=== PATIENT | male | born 1940 | race Caucasian/White ===

== ENCOUNTER 2019-02-08 05:46 | Inpatient (IN) | payer MEDICARE, BC ==
[2019-02-08] MEDS: FAMOTIDINE 20 MG INJ IV (06:04)
[2019-02-08 06:13] LABS: ADD MAN DIFF? NO
[2019-02-08 06:22] LABS: ABNORMAL IP MESSAGE 1; BASOPHILS % 0.2 % (0.0-2.0); EOSINOPHILS % 0.2 % (0.0-7.0); HEMOGLOBIN 11.9 g/dl (14.0-18.0); LYMPHOCYTES # 1.3 10^3/ul (0.8-2.9); LYMPHOCYTES % 10.6 % (15.0-51.0); MEAN CORPUSCULAR HEMOGLOBIN 32.3 pg (29.0-33.0); MEAN CORPUSCULAR HGB CONC 33.1 g/dl (32.0-37.0); MEAN CORPUSCULAR VOLUME 97.8 fl (82.0-101.0); MEAN PLATELET VOLUME 10.4 fl (7.4-10.4); MONOCYTE # 1.7 10^3/ul (0.3-0.9); MONOCYTES % 14.3 % (0.0-11.0); PLATELET COUNT 425 10^3/UL (140-415); POSITIVE DIFF @See below; RED BLOOD COUNT 3.68 10^6/ul (4.70-6.10); RED CELL DISTRIBUTION WIDTH 14.3 % (11.5-14.5)
[2019-02-08 06:22] LABS: WHITE BLOOD COUNT 12.1 10^3/ul (4.8-10.8)
[2019-02-08 06:38] LABS: ALANINE AMINOTRANSFERASE 21 IU/L (13-69); ALBUMIN 3.6 g/dl (3.3-4.9); ALBUMIN/GLOBULIN RATIO 0.78; ALKALINE PHOSPHATASE 106 IU/L (42-121); ANION GAP 8 (5-13); ASPARTATE AMINO TRANSFERASE 26 IU/L (15-46); BILIRUBIN,INDIRECT 0.6 mg/dl (0-1.1); BILIRUBIN,TOTAL 0.6 mg/dl (0.2-1.3); BLOOD UREA NITROGEN 41 mg/dl (7-20); CALCIUM 9.4 mg/dl (8.4-10.2); CARBON DIOXIDE 36 mmol/L (21-31); CHLORIDE 88 mmol/L (97-110); CREATININE 1.28 mg/dl (0.61-1.24); GLUCOSE 162 mg/dl (70-220); POTASSIUM 4.4 mmol/L (3.5-5.1); SODIUM 132 mmol/L (135-144); TOTAL PROTEIN 8.2 g/dl (6.1-8.1)
[2019-02-08 06:42] LABS: PROTIME 13.3 Sec (11.9-14.9)
[2019-02-08 06:43] LABS: ADD UMIC YES; PARTIAL THROMBOPLASTIN TIME 39.6 Sec (23.0-35.0); UR ASCORBIC ACID 40 mg/dL (NEGATIVE); UR BACTERIA FEW /HPF (NONE SEEN); UR BILIRUBIN (Dip) 1+ mg/dL (NEGATIVE); UR BLOOD (Dip) 1+ mg/dL (NEGATIVE); UR CLARITY CLOUDY (CLEAR); UR COLOR AMBER (YELLOW); UR GLUCOSE (Dip) NEGATIVE (NEGATIVE); UR HYALINE CAST FEW /HPF (NONE SEEN); UR KETONES (Dip) NEGATIVE (NEGATIVE); UR LEUKOCYTE ESTERASE (Dip) 2+ Leu/ul (NEGATIVE); UR MUCUS MANY /HPF (NONE SEEN); UR NITRITE (Dip) NEGATIVE (NEGATIVE); UR RBC 119 /HPF (0-5); UR RENAL EPITHELIAL CELL FEW /HPF (NONE SEEN); UR SPECIFIC GRAVITY (Dip) 1.032 (1.003-1.030); UR TOTAL PROTEIN (Dip) 2+ mg/dl (NEGATIVE); UR UROBILINOGEN (Dip) 1+ mg/dL (NEGATIVE); UR WBC > 182 /HPF (0-5)
[2019-02-08 06:49] LABS: TROPONIN-I < 0.012 ng/ml (0.000-0.120)
[2019-02-08] MEDS: SOD CHLORIDE 0.9% 500 ML IV ×2 (06:57→07:42)
[2019-02-08] MEDS: PIPER-TAZO 3.375 GM IV (PMX) 100 ML IVPB ×3 (06:57→15:55)
[2019-02-08] MEDS ORDERED: ACETAMINOPHEN 325 MG TAB PO (07:00)
[2019-02-08] MEDS ORDERED: ONDANSETRON 4 MG INJ IV (07:00)
[2019-02-08] MEDS ORDERED: NACL 0.9% 3 ML SYG IV (07:30)
[2019-02-08] MEDS ORDERED: VANCOMYCIN IV PER PHARMACY XX (07:30)
[2019-02-08] MEDS: VANCOMYCIN 1 GM (PMX) 250 ML IVPB (07:42)
[2019-02-08] MEDS: SOD CHLORIDE 0.9% 1,000 ML IV ×2 (07:43→20:06)
[2019-02-08 08:12] LABS: B-TYPE NATRIURETIC PEPTIDE 401 PG/ML (0-450)
[2019-02-08] MEDS: PANTOPRAZOLE 40 MG INJ IV ×3 (08:24→20:06)
[2019-02-08 08:57] LABS: LACTIC ACID 2.2 mmol/L (0.5-2.0)
[2019-02-08] MEDS: ALBUMIN HUMAN 25% 100 ML IV ×2 (10:28→15:10)
[2019-02-08 11:06] LABS: LACTIC ACID 1.5 mmol/L (0.5-2.0)
[2019-02-08] MEDS: morphine 2 MG INJ IV (11:28)
[2019-02-08] MEDS: VANCOMYCIN 500 MG (PMX) 100 ML IVPB (11:54)
[2019-02-08] MEDS ORDERED: DESFLURANE 15 MIN (12:30)
[2019-02-08] MEDS ORDERED: FENTAnyl 50 MCG/ML VIAL (12:30)
[2019-02-08] MEDS ORDERED: LIDOCAINE 2% (SDV) 5 ML INJ (12:30)
[2019-02-08] MEDS ORDERED: ETOMIDATE 20 MG INJ (12:30)
[2019-02-08] MEDS ORDERED: ROCURONIUM 50 MG INJ ×2 (12:30)
[2019-02-08] MEDS ORDERED: MIDAZOLAM 1 MG/ML 2 ML INJ (12:48)
[2019-02-08] MEDS ORDERED: FAMOTIDINE 20 MG INJ (12:49)
[2019-02-08] MEDS ORDERED: ONDANSETRON 4 MG INJ (12:49)
[2019-02-08] MEDS ORDERED: SUGAMMADEX SODIUM 200 MG/2 ML VIAL IV (12:52)
[2019-02-08] MEDS ORDERED: MAGNESIUM HYDROXIDE 30ML CUP GTB (15:30)
[2019-02-08] MEDS ORDERED: LORAZEPAM 0.5 MG TAB GTB (15:30)
[2019-02-08 16:34] LABS: ADD UMIC YES; UR ASCORBIC ACID 20 mg/dL (NEGATIVE); UR BILIRUBIN (Dip) NEGATIVE (NEGATIVE); UR BLOOD (Dip) NEGATIVE (NEGATIVE); UR CLARITY SLIGHTLY CLOUDY (CLEAR); UR COLOR YELLOW (YELLOW); UR GLUCOSE (Dip) NEGATIVE (NEGATIVE); UR KETONES (Dip) NEGATIVE (NEGATIVE); UR LEUKOCYTE ESTERASE (Dip) 3+ Leu/ul (NEGATIVE); UR MUCUS FEW /HPF (NONE SEEN); UR NITRITE (Dip) POSITIVE (NEGATIVE); UR RBC 3 /HPF (0-5); UR SPECIFIC GRAVITY (Dip) 1.024 (1.003-1.030); UR TOTAL PROTEIN (Dip) NEGATIVE (NEGATIVE); UR UROBILINOGEN (Dip) NEGATIVE (NEGATIVE); UR WBC 85 /HPF (0-5)
[2019-02-08 16:37] LABS: SODIUM,URINE RANDOM 60 mmol/L (30-90)
[2019-02-08 16:37] LABS: CREATININE,URINE RANDOM 85.16 mg/dl (20-370)
[2019-02-08] MEDS: METOCLOPRAMIDE 10 MG INJ IV (18:06)
[2019-02-08 18:27] LABS: ADD MAN DIFF? NO
[2019-02-08 18:28] LABS: ABNORMAL IP MESSAGE 1; BASOPHILS % 0.3 % (0.0-2.0); EOSINOPHILS # 0.2 10^3/ul (0.0-0.5); HEMATOCRIT 25.8 % (42.0-52.0); HEMOGLOBIN 8.5 g/dl (14.0-18.0); LYMPHOCYTES # 0.5 10^3/ul (0.8-2.9); LYMPHOCYTES % 6.2 % (15.0-51.0); MEAN CORPUSCULAR HEMOGLOBIN 33.3 pg (29.0-33.0); MEAN CORPUSCULAR HGB CONC 32.9 g/dl (32.0-37.0); MEAN CORPUSCULAR VOLUME 101.2 fl (82.0-101.0); MEAN PLATELET VOLUME 10.2 fl (7.4-10.4); MONOCYTE # 0.7 10^3/ul (0.3-0.9); MONOCYTES % 9.9 % (0.0-11.0); NEUTROPHILS % 81.1 % (39.0-77.0); PLATELET COUNT 266 10^3/UL (140-415); POSITIVE DIFF @See below; RED BLOOD COUNT 2.55 10^6/ul (4.70-6.10); RED CELL DISTRIBUTION WIDTH 14.3 % (11.5-14.5)
[2019-02-08 18:28] LABS: WHITE BLOOD COUNT 7.5 10^3/ul (4.8-10.8)
[2019-02-08 18:44] LABS: CREATINE KINASE 20 IU/L (23-200)
[2019-02-08 18:57] LABS: CK INDEX 1.5; CK-MB 0.29 ng/ml (0.0-2.4); TROPONIN-I < 0.012 ng/ml (0.000-0.120)
[2019-02-08] MEDS: SENNA TAB GTB (20:06)
[2019-02-09] MEDS: METOCLOPRAMIDE 10 MG INJ IV ×4 (00:04→21:37)
[2019-02-09] MEDS: PIPER-TAZO 3.375 GM IV (PMX) 100 ML IVPB ×4 (00:04→21:36)
[2019-02-09 01:24] LABS: ADD MAN DIFF? NO
[2019-02-09 01:26] LABS: ABNORMAL IP MESSAGE 1; BASOPHILS % 0.3 % (0.0-2.0); EOSINOPHILS # 0.2 10^3/ul (0.0-0.5); EOSINOPHILS % 3.4 % (0.0-7.0); HEMATOCRIT 22.9 % (42.0-52.0); HEMOGLOBIN 7.4 g/dl (14.0-18.0); LYMPHOCYTES # 0.4 10^3/ul (0.8-2.9); LYMPHOCYTES % 6.6 % (15.0-51.0); MEAN CORPUSCULAR HEMOGLOBIN 32.2 pg (29.0-33.0); MEAN CORPUSCULAR HGB CONC 32.3 g/dl (32.0-37.0); MEAN CORPUSCULAR VOLUME 99.6 fl (82.0-101.0); MEAN PLATELET VOLUME 10.1 fl (7.4-10.4); MONOCYTE # 0.8 10^3/ul (0.3-0.9); MONOCYTES % 12.1 % (0.0-11.0); NEUTROPHIL # 5.1 10^3/ul (1.6-7.5); NEUTROPHILS % 76.9 % (39.0-77.0); PLATELET COUNT 234 10^3/UL (140-415); POSITIVE DIFF @See below; RED CELL DISTRIBUTION WIDTH 14.6 % (11.5-14.5)
[2019-02-09 01:26] LABS: WHITE BLOOD COUNT 6.7 10^3/ul (4.8-10.8)
[2019-02-09 01:45] LABS: CREATINE KINASE 21 IU/L (23-200)
[2019-02-09 01:59] LABS: CK-MB < 0.22 ng/ml (0.0-2.4); TROPONIN-I < 0.012 ng/ml (0.000-0.120)
[2019-02-09 06:18] LABS: ADD MAN DIFF? NO
[2019-02-09] MEDS: LEVOTHYROXINE 100 MCG TAB GTB (06:26)
[2019-02-09 06:45] LABS: ABNORMAL IP MESSAGE 1; BASOPHILS % 0.5 % (0.0-2.0); EOSINOPHILS # 0.3 10^3/ul (0.0-0.5); EOSINOPHILS % 5.3 % (0.0-7.0); HEMATOCRIT 24.9 % (42.0-52.0); LYMPHOCYTES # 0.5 10^3/ul (0.8-2.9); MEAN CORPUSCULAR HEMOGLOBIN 33.5 pg (29.0-33.0); MEAN CORPUSCULAR HGB CONC 32.1 g/dl (32.0-37.0); MEAN CORPUSCULAR VOLUME 104.2 fl (82.0-101.0); MEAN PLATELET VOLUME 10.5 fl (7.4-10.4); MONOCYTE # 0.7 10^3/ul (0.3-0.9); MONOCYTES % 11.9 % (0.0-11.0); NEUTROPHIL # 4.2 10^3/ul (1.6-7.5); NEUTROPHILS % 72.3 % (39.0-77.0); PLATELET COUNT 233 10^3/UL (140-415); POSITIVE DIFF @See below; RED BLOOD COUNT 2.39 10^6/ul (4.70-6.10); RED CELL DISTRIBUTION WIDTH 14.6 % (11.5-14.5)
[2019-02-09 06:45] LABS: WHITE BLOOD COUNT 5.8 10^3/ul (4.8-10.8)
[2019-02-09 07:10] LABS: CHOLESTEROL 90 mg/dl (100-200); PHOSPHORUS 2.8 mg/dl (2.5-4.9)
[2019-02-09 07:10] LABS: HDL CHOLESTEROL 15 mg/dl (31-75); LDL CHOLESTEROL,CALCULATED 54 mg/dl; TRIGLYCERIDES 106 mg/dl (0-149)
[2019-02-09 07:12] LABS: ALANINE AMINOTRANSFERASE 36 IU/L (13-69); ALBUMIN 2.7 g/dl (3.3-4.9); ALBUMIN/GLOBULIN RATIO 0.79; ALKALINE PHOSPHATASE 65 IU/L (42-121); ANION GAP 7 (5-13); ASPARTATE AMINO TRANSFERASE 62 IU/L (15-46); BILIRUBIN,INDIRECT 0.7 mg/dl (0-1.1); BILIRUBIN,TOTAL 0.7 mg/dl (0.2-1.3); BLOOD UREA NITROGEN 36 mg/dl (7-20); CALCIUM 8.2 mg/dl (8.4-10.2); CARBON DIOXIDE 26 mmol/L (21-31); CHLORIDE 102 mmol/L (97-110); CREATININE 1.23 mg/dl (0.61-1.24); GLUCOSE 84 mg/dl (70-220); MAGNESIUM 1.9 mg/dl (1.7-2.5); POTASSIUM 3.9 mmol/L (3.5-5.1); SODIUM 135 mmol/L (135-144); TOTAL PROTEIN 6.1 g/dl (6.1-8.1)
[2019-02-09] MEDS: VANCOMYCIN 1.25 GM/NS 250 ML 250 ML IVPB ×2 (08:00→10:23)
[2019-02-09] MEDS: PANTOPRAZOLE 40 MG INJ IV ×3 (09:00→21:36)
[2019-02-09] MEDS: ASCORBIC ACID 500 MG TAB GTB (09:00)
[2019-02-09] MEDS: MEMANTINE 5 MG TAB GTB (09:00)
[2019-02-09] MEDS: SERTRALINE 50 MG TAB GTB (09:00)
[2019-02-09] MEDS: MULTIVITAMINS THERAPEUTIC TAB GTB (09:00)
[2019-02-09] MEDS: SENNA TAB GTB ×2 (09:00→21:36)
[2019-02-09] MEDS: ALBUTEROL/IPRATROPIUM (NEB) 3 ML AMP HHN (09:45)
[2019-02-09 12:28] LABS: CREATINE KINASE 20 IU/L (23-200)
[2019-02-09 12:40] LABS: CK INDEX 1.1; CK-MB < 0.22 ng/ml (0.0-2.4); TROPONIN-I < 0.012 ng/ml (0.000-0.120)
[2019-02-09 13:12] LABS: ADD MAN DIFF? NO
[2019-02-09 13:15] LABS: BASOPHILS % 0.4 % (0.0-2.0); EOSINOPHILS # 0.4 10^3/ul (0.0-0.5); EOSINOPHILS % 7.4 % (0.0-7.0); HEMATOCRIT 22.1 % (42.0-52.0); LYMPHOCYTES # 0.7 10^3/ul (0.8-2.9); LYMPHOCYTES % 12.3 % (15.0-51.0); MEAN CORPUSCULAR HEMOGLOBIN 32.3 pg (29.0-33.0); MEAN CORPUSCULAR HGB CONC 31.7 g/dl (32.0-37.0); MEAN CORPUSCULAR VOLUME 101.8 fl (82.0-101.0); MEAN PLATELET VOLUME 9.8 fl (7.4-10.4); MONOCYTE # 0.8 10^3/ul (0.3-0.9); MONOCYTES % 14.4 % (0.0-11.0); NEUTROPHIL # 3.4 10^3/ul (1.6-7.5); NEUTROPHILS % 64.9 % (39.0-77.0); PLATELET COUNT 223 10^3/UL (140-415); RED BLOOD COUNT 2.17 10^6/ul (4.70-6.10); RED CELL DISTRIBUTION WIDTH 14.7 % (11.5-14.5)
[2019-02-09 13:15] LABS: WHITE BLOOD COUNT 5.3 10^3/ul (4.8-10.8)
[2019-02-09] MEDS: SOD CHLORIDE 0.9% 1,000 ML IV (16:00)
[2019-02-09] MEDS: SOD CHLORIDE 0.9% 250 ML IV* (16:36)
[2019-02-09 17:46] LABS: CREATININE, RANDOM URINE 85 mg/dL (20-320); MICROALBUMIN 2.1 mg/dL; MICROALBUMIN/CREATININE RATIO 25 (<30)
[2019-02-09] MEDS: morphine 2 MG INJ IV (23:06)
[2019-02-10] MEDS: METOCLOPRAMIDE 10 MG INJ IV ×4 (00:33→18:47)
[2019-02-10] MEDS: PIPER-TAZO 3.375 GM IV (PMX) 100 ML IVPB ×2 (00:33→05:08)
[2019-02-10] MEDS: morphine 2 MG INJ IV ×2 (05:07→11:13)
[2019-02-10 06:04] LABS: ADD MAN DIFF? NO
[2019-02-10 06:08] LABS: WHITE BLOOD COUNT 4.6 10^3/ul (4.8-10.8)
[2019-02-10 06:08] LABS: BASOPHILS % 0.7 % (0.0-2.0); EOSINOPHILS # 0.4 10^3/ul (0.0-0.5); EOSINOPHILS % 8.7 % (0.0-7.0); HEMATOCRIT 22.5 % (42.0-52.0); HEMOGLOBIN 7.3 g/dl (14.0-18.0); LYMPHOCYTES # 0.7 10^3/ul (0.8-2.9); LYMPHOCYTES % 14.8 % (15.0-51.0); MEAN CORPUSCULAR HEMOGLOBIN 32.2 pg (29.0-33.0); MEAN CORPUSCULAR HGB CONC 32.4 g/dl (32.0-37.0); MEAN CORPUSCULAR VOLUME 99.1 fl (82.0-101.0); MEAN PLATELET VOLUME 10.3 fl (7.4-10.4); MONOCYTE # 0.9 10^3/ul (0.3-0.9); MONOCYTES % 19.8 % (0.0-11.0); NEUTROPHIL # 2.5 10^3/ul (1.6-7.5); NEUTROPHILS % 54.7 % (39.0-77.0); PLATELET COUNT 216 10^3/UL (140-415); RED BLOOD COUNT 2.27 10^6/ul (4.70-6.10); RED CELL DISTRIBUTION WIDTH 16.9 % (11.5-14.5)
[2019-02-10 06:32] LABS: PHOSPHORUS 2.8 mg/dl (2.5-4.9)
[2019-02-10 06:38] LABS: ANION GAP 6 (5-13); BLOOD UREA NITROGEN 32 mg/dl (7-20); CALCIUM 8.1 mg/dl (8.4-10.2); CARBON DIOXIDE 25 mmol/L (21-31); CHLORIDE 106 mmol/L (97-110); CREATININE 1.27 mg/dl (0.61-1.24); GLUCOSE 86 mg/dl (70-220); POTASSIUM 3.8 mmol/L (3.5-5.1); SODIUM 137 mmol/L (135-144)
[2019-02-10] MEDS: LEVOTHYROXINE 100 MCG TAB GTB (07:00)
[2019-02-10] MEDS: MULTIVITAMINS THERAPEUTIC TAB GTB (08:27)
[2019-02-10] MEDS: SENNA TAB GTB ×2 (08:27→21:00)
[2019-02-10] MEDS: MEMANTINE 5 MG TAB GTB (08:27)
[2019-02-10] MEDS: VANCOMYCIN 1.25 GM/NS 250 ML 250 ML IVPB (08:27)
[2019-02-10] MEDS: SERTRALINE 50 MG TAB GTB (08:28)
[2019-02-10] MEDS: ASCORBIC ACID 500 MG TAB GTB (08:28)
[2019-02-10] MEDS: PANTOPRAZOLE 40 MG INJ IV (08:30)
[2019-02-10] MEDS: SOD CHLORIDE 0.9% 1,000 ML IV (09:21)
[2019-02-10] MEDS: PANTOPRAZOLE IV 80 MG in SOD CHLORIDE 0.9% 100 ML IV ×2 (12:04→21:00)
[2019-02-10] MEDS: SOD CHLORIDE 0.9% 500 ML IV (16:31)
[2019-02-10 16:33] LABS: HEMATOCRIT 26.6 % (42.0-52.0); HEMOGLOBIN 8.6 g/dl (14.0-18.0)
[2019-02-10 18:15] LABS: IMMEDIATE SPIN CROSSMATCH 1 3
[2019-02-10] MEDS: POLYETHYLENE GLYCOL 17 GM PACKET GTB (21:00)
[2019-02-10] MEDS: CIPROFLOXACIN 400MG/D5W 200 ML IVPB (21:54)
[2019-02-11 00:53] LABS: HEMOGLOBIN 8.7 g/dl (14.0-18.0)
[2019-02-11] MEDS: METOCLOPRAMIDE 10 MG INJ IV ×4 (01:06→17:51)
[2019-02-11] MEDS: SOD CHLORIDE 0.9% 1,000 ML IV ×2 (05:00→20:07)
[2019-02-11] MEDS: LEVOTHYROXINE 100 MCG TAB GTB (05:24)
[2019-02-11] MEDS: PANTOPRAZOLE IV 80 MG in SOD CHLORIDE 0.9% 100 ML IV ×2 (05:24→17:51)
[2019-02-11 07:20] LABS: OCCULT BLOOD STOOL POSITIVE (NEGATIVE)
[2019-02-11] MEDS: ASCORBIC ACID 500 MG TAB GTB (09:00)
[2019-02-11] MEDS: SERTRALINE 50 MG TAB GTB (09:00)
[2019-02-11] MEDS: MEMANTINE 5 MG TAB GTB (09:00)
[2019-02-11] MEDS: MULTIVITAMINS THERAPEUTIC TAB GTB (09:00)
[2019-02-11] MEDS: POLYETHYLENE GLYCOL 17 GM PACKET GTB ×2 (09:00→20:13)
[2019-02-11] MEDS: SENNA TAB GTB ×2 (09:00→20:13)
[2019-02-11] MEDS: CIPROFLOXACIN 400MG/D5W 200 ML IVPB (10:00)
[2019-02-11] MEDS: morphine 2 MG INJ IV (10:01)
[2019-02-11 12:56] LABS: ADD MAN DIFF? NO
[2019-02-11 13:01] LABS: BASOPHILS % 0.6 % (0.0-2.0); EOSINOPHILS # 0.3 10^3/ul (0.0-0.5); EOSINOPHILS % 5.6 % (0.0-7.0); HEMATOCRIT 25.7 % (42.0-52.0); HEMOGLOBIN 8.4 g/dl (14.0-18.0); LYMPHOCYTES # 1.3 10^3/ul (0.8-2.9); LYMPHOCYTES % 24.4 % (15.0-51.0); MEAN CORPUSCULAR HEMOGLOBIN 31.3 pg (29.0-33.0); MEAN CORPUSCULAR HGB CONC 32.7 g/dl (32.0-37.0); MEAN CORPUSCULAR VOLUME 95.9 fl (82.0-101.0); MEAN PLATELET VOLUME 9.4 fl (7.4-10.4); MONOCYTE # 0.8 10^3/ul (0.3-0.9); MONOCYTES % 15.8 % (0.0-11.0); NEUTROPHIL # 2.7 10^3/ul (1.6-7.5); NEUTROPHILS % 51.3 % (39.0-77.0); PLATELET COUNT 197 10^3/UL (140-415); RED BLOOD COUNT 2.68 10^6/ul (4.70-6.10); RED CELL DISTRIBUTION WIDTH 16.4 % (11.5-14.5)
[2019-02-11 13:01] LABS: WHITE BLOOD COUNT 5.2 10^3/ul (4.8-10.8)
[2019-02-11 13:18] LABS: PHOSPHORUS 2.1 mg/dl (2.5-4.9)
[2019-02-11 13:20] LABS: ANION GAP 3 (5-13); BLOOD UREA NITROGEN 42 mg/dl (7-20); CALCIUM 8.2 mg/dl (8.4-10.2); CARBON DIOXIDE 24 mmol/L (21-31); CHLORIDE 112 mmol/L (97-110); CREATININE 1.02 mg/dl (0.61-1.24); GLUCOSE 97 mg/dl (70-220); MAGNESIUM 1.8 mg/dl (1.7-2.5); POTASSIUM 4.2 mmol/L (3.5-5.1); SODIUM 139 mmol/L (135-144)
[2019-02-11 13:23] LABS: VANCOMYCIN,TROUGH 14.3 ug/ml (10.0-20.0)
[2019-02-11] MEDS: FLUCONAZOLE 200 MG (PMX) 100 ML IVPB (13:25)
[2019-02-11] MEDS: VANCOMYCIN 1.25 GM/NS 250 ML 250 ML IVPB (13:35)
[2019-02-11] MEDS: LEVOFLOXACIN 500MG/D5W (PMX) 100 ML IVPB (20:40)
[2019-02-12] MEDS: METOCLOPRAMIDE 10 MG INJ IV ×5 (00:27→23:47)
[2019-02-12 02:17] LABS: ADD MAN DIFF? NO
[2019-02-12 02:19] LABS: WHITE BLOOD COUNT 10.8 10^3/ul (4.8-10.8)
[2019-02-12 02:19] LABS: ABNORMAL IP MESSAGE 1; BASOPHIL # 0.1 10^3/ul (0.0-0.1); BASOPHILS % 0.6 % (0.0-2.0); EOSINOPHILS # 0.5 10^3/ul (0.0-0.5); EOSINOPHILS % 4.3 % (0.0-7.0); LYMPHOCYTES % 37.5 % (15.0-51.0); MEAN CORPUSCULAR HEMOGLOBIN 31.5 pg (29.0-33.0); MEAN CORPUSCULAR HGB CONC 32.9 g/dl (32.0-37.0); MEAN CORPUSCULAR VOLUME 95.9 fl (82.0-101.0); MEAN PLATELET VOLUME 10.1 fl (7.4-10.4); MONOCYTE # 1.4 10^3/ul (0.3-0.9); MONOCYTES % 13.1 % (0.0-11.0); NEUTROPHIL # 4.6 10^3/ul (1.6-7.5); NEUTROPHILS % 42.3 % (39.0-77.0); PLATELET COUNT 361 10^3/UL (140-415); POSITIVE DIFF @See below; RED BLOOD COUNT 2.19 10^6/ul (4.70-6.10); RED CELL DISTRIBUTION WIDTH 16.4 % (11.5-14.5)
[2019-02-12 02:28] LABS: HEMOGLOBIN 6.9 g/dl (14.0-18.0)
[2019-02-12 02:40] LABS: ALANINE AMINOTRANSFERASE 37 IU/L (13-69); ALBUMIN 2.1 g/dl (3.3-4.9); ALBUMIN/GLOBULIN RATIO 0.84; ALKALINE PHOSPHATASE 58 IU/L (42-121); ANION GAP 6 (5-13); ASPARTATE AMINO TRANSFERASE 30 IU/L (15-46); BILIRUBIN,INDIRECT 0.5 mg/dl (0-1.1); BILIRUBIN,TOTAL 0.5 mg/dl (0.2-1.3); BLOOD UREA NITROGEN 30 mg/dl (7-20); CALCIUM 7.8 mg/dl (8.4-10.2); CARBON DIOXIDE 17 mmol/L (21-31); CHLORIDE 116 mmol/L (97-110); CREATININE 1.08 mg/dl (0.61-1.24); GLUCOSE 185 mg/dl (70-220); POTASSIUM 3.7 mmol/L (3.5-5.1); SODIUM 139 mmol/L (135-144); TOTAL PROTEIN 4.6 g/dl (6.1-8.1)
[2019-02-12 02:41] LABS: INR 1.26; PROTIME 15.9 Sec (11.9-14.9); PT RATIO 1.2
[2019-02-12 02:49] LABS: PARTIAL THROMBOPLASTIN TIME 39.2 Sec (23.0-35.0)
[2019-02-12 02:50] LABS: LACTIC ACID 3.4 mmol/L (0.5-2.0)
[2019-02-12] MEDS: NORepinephrine 8MG/250 ML (PMX 250 ML IV (03:10)
[2019-02-12] MEDS: PANTOPRAZOLE IV 80 MG in SOD CHLORIDE 0.9% 100 ML IV ×3 (03:17→21:33)
[2019-02-12] MEDS: SOD CHLORIDE 0.9% 1,000 ML IV (04:07)
[2019-02-12] MEDS: morphine 2 MG INJ IV (04:29)
[2019-02-12] MEDS: ONDANSETRON 4 MG INJ IV (05:26)
[2019-02-12 06:00] LABS: IMMEDIATE SPIN CROSSMATCH 1 4
[2019-02-12] MEDS: LEVOTHYROXINE 100 MCG TAB GTB (06:08)
[2019-02-12 08:17] LABS: IMMEDIATE SPIN CROSSMATCH 1
[2019-02-12] MEDS: SENNA TAB GTB ×2 (08:38→20:52)
[2019-02-12] MEDS: POLYETHYLENE GLYCOL 17 GM PACKET GTB ×2 (08:38→20:51)
[2019-02-12] MEDS: ASCORBIC ACID 500 MG TAB GTB (08:38)
[2019-02-12] MEDS: SERTRALINE 50 MG TAB GTB (08:38)
[2019-02-12] MEDS: MULTIVITAMINS THERAPEUTIC TAB GTB (08:38)
[2019-02-12] MEDS: MEMANTINE 5 MG TAB GTB (08:38)
[2019-02-12] MEDS: FLUCONAZOLE 200 MG (PMX) 100 ML IVPB (10:35)
[2019-02-12 11:55] LABS: ADD MAN DIFF? NO
[2019-02-12 11:56] LABS: BASOPHILS % 0.4 % (0.0-2.0); EOSINOPHILS % 0.4 % (0.0-7.0); HEMATOCRIT 23.5 % (42.0-52.0); HEMOGLOBIN 7.8 g/dl (14.0-18.0); LYMPHOCYTES % 15.2 % (15.0-51.0); MEAN CORPUSCULAR HEMOGLOBIN 32.1 pg (29.0-33.0); MEAN CORPUSCULAR HGB CONC 33.2 g/dl (32.0-37.0); MEAN CORPUSCULAR VOLUME 96.7 fl (82.0-101.0); MEAN PLATELET VOLUME 9.1 fl (7.4-10.4); MONOCYTE # 0.7 10^3/ul (0.3-0.9); MONOCYTES % 10.3 % (0.0-11.0); NEUTROPHIL # 4.6 10^3/ul (1.6-7.5); NEUTROPHILS % 69.2 % (39.0-77.0); PLATELET COUNT 167 10^3/UL (140-415); RED BLOOD COUNT 2.43 10^6/ul (4.70-6.10); RED CELL DISTRIBUTION WIDTH 15.3 % (11.5-14.5)
[2019-02-12 11:56] LABS: WHITE BLOOD COUNT 6.7 10^3/ul (4.8-10.8)
[2019-02-12] MEDS: LORAZEPAM 2 MG INJ IV ×2 (12:04→23:47)
[2019-02-12] MEDS: VANCOMYCIN 1 GM 250 ML IVPB (12:09)
[2019-02-12 12:12] LABS: PHOSPHORUS 2.9 mg/dl (2.5-4.9)
[2019-02-12 12:12] LABS: MAGNESIUM 1.6 mg/dl (1.7-2.5)
[2019-02-12 12:13] LABS: ANION GAP 3 (5-13); BLOOD UREA NITROGEN 38 mg/dl (7-20); CALCIUM 7.6 mg/dl (8.4-10.2); CARBON DIOXIDE 21 mmol/L (21-31); CHLORIDE 116 mmol/L (97-110); CREATININE 1.18 mg/dl (0.61-1.24); GLUCOSE 98 mg/dl (70-220); POTASSIUM 3.9 mmol/L (3.5-5.1); SODIUM 140 mmol/L (135-144)
[2019-02-12] MEDS: CEFEPIME 1GM/50 ML (PMX) 50 ML IVPB ×2 (15:05→21:33)
[2019-02-12 18:45] LABS: HEMATOCRIT 20.5 % (42.0-52.0)
[2019-02-12] MEDS: SOD CHLORIDE 0.9% 250 ML IV* (19:30)
[2019-02-12] MEDS: DEXTROSE 5%-0.45% NACL 1,000 ML IV (21:33)
[2019-02-13 00:14] LABS: HEMATOCRIT 24.8 % (42.0-52.0); HEMOGLOBIN 8.3 g/dl (14.0-18.0)
[2019-02-13] MEDS: LEVOTHYROXINE 100 MCG TAB GTB (05:07)
[2019-02-13] MEDS: METOCLOPRAMIDE 10 MG INJ IV ×3 (05:20→17:06)
[2019-02-13] MEDS: CEFEPIME 1GM/50 ML (PMX) 50 ML IVPB ×3 (05:20→23:14)
[2019-02-13 05:44] LABS: ADD MAN DIFF? NO
[2019-02-13 05:47] LABS: WHITE BLOOD COUNT 4.3 10^3/ul (4.8-10.8)
[2019-02-13 05:47] LABS: BASOPHILS % 0.5 % (0.0-2.0); EOSINOPHILS # 0.2 10^3/ul (0.0-0.5); EOSINOPHILS % 3.5 % (0.0-7.0); HEMATOCRIT 23.7 % (42.0-52.0); LYMPHOCYTES # 1.1 10^3/ul (0.8-2.9); LYMPHOCYTES % 25.6 % (15.0-51.0); MEAN CORPUSCULAR HEMOGLOBIN 31.7 pg (29.0-33.0); MEAN CORPUSCULAR HGB CONC 33.8 g/dl (32.0-37.0); MEAN PLATELET VOLUME 9.8 fl (7.4-10.4); MONOCYTE # 0.6 10^3/ul (0.3-0.9); MONOCYTES % 14.3 % (0.0-11.0); NEUTROPHIL # 2.2 10^3/ul (1.6-7.5); NEUTROPHILS % 51.7 % (39.0-77.0); PLATELET COUNT 146 10^3/UL (140-415); RED BLOOD COUNT 2.52 10^6/ul (4.70-6.10); RED CELL DISTRIBUTION WIDTH 15.6 % (11.5-14.5)
[2019-02-13 06:05] LABS: INR 1.24; PROTIME 15.7 Sec (11.9-14.9); PT RATIO 1.2
[2019-02-13 06:06] LABS: PARTIAL THROMBOPLASTIN TIME 39.4 Sec (23.0-35.0)
[2019-02-13 06:17] LABS: PHOSPHORUS 2.3 mg/dl (2.5-4.9)
[2019-02-13 06:17] LABS: MAGNESIUM 1.6 mg/dl (1.7-2.5)
[2019-02-13 06:25] LABS: ANION GAP 2 (5-13); BLOOD UREA NITROGEN 31 mg/dl (7-20); CALCIUM 7.9 mg/dl (8.4-10.2); CARBON DIOXIDE 21 mmol/L (21-31); CHLORIDE 116 mmol/L (97-110); CREATININE 1.15 mg/dl (0.61-1.24); GLUCOSE 88 mg/dl (70-220); POTASSIUM 3.5 mmol/L (3.5-5.1); SODIUM 139 mmol/L (135-144)
[2019-02-13] MEDS: PANTOPRAZOLE IV 80 MG in SOD CHLORIDE 0.9% 100 ML IV ×2 (06:57→17:06)
[2019-02-13] MEDS: MAGNESIUM SULFATE 2 GM/50 ML 50 ML IVPB (06:57)
[2019-02-13] MEDS: SENNA TAB GTB ×2 (08:10→20:20)
[2019-02-13] MEDS: MEMANTINE 5 MG TAB GTB (08:10)
[2019-02-13] MEDS: POLYETHYLENE GLYCOL 17 GM PACKET GTB ×2 (08:10→20:20)
[2019-02-13] MEDS: MULTIVITAMINS THERAPEUTIC TAB GTB (08:10)
[2019-02-13] MEDS: ASCORBIC ACID 500 MG TAB GTB (08:11)
[2019-02-13] MEDS: SERTRALINE 50 MG TAB GTB (08:11)
[2019-02-13] MEDS: POTASSIUM PHOSPHATE 20 MEQ in SOD CHLORIDE 0.9% 250 ML IVPB (08:17)
[2019-02-13] MEDS: DEXTROSE 5%-0.45% NACL 1,000 ML IV (10:22)
[2019-02-13] MEDS: FLUCONAZOLE 200 MG (PMX) 100 ML IVPB (10:22)
[2019-02-13 12:01] LABS: HEMATOCRIT 23.7 % (42.0-52.0)
[2019-02-13 17:56] LABS: HEMATOCRIT 24.1 % (42.0-52.0)
[2019-02-13] MEDS: morphine 2 MG INJ IV ×2 (20:31→23:40)
[2019-02-14] MEDS: METOCLOPRAMIDE 10 MG INJ IV ×4 (00:22→17:08)
[2019-02-14 00:34] LABS: HEMATOCRIT 28.3 % (42.0-52.0); HEMOGLOBIN 9.1 g/dl (14.0-18.0)
[2019-02-14] MEDS: LORAZEPAM 2 MG INJ IV (01:32)
[2019-02-14] MEDS: morphine 2 MG INJ IV ×3 (05:00→22:13)
[2019-02-14 05:44] LABS: HEMATOCRIT 25.8 % (42.0-52.0); HEMOGLOBIN 8.5 g/dl (14.0-18.0)
[2019-02-14] MEDS: CEFEPIME 1GM/50 ML (PMX) 50 ML IVPB ×3 (05:44→22:12)
[2019-02-14] MEDS: PANTOPRAZOLE IV 80 MG in SOD CHLORIDE 0.9% 100 ML IV ×3 (05:50→17:09)
[2019-02-14 06:07] LABS: ANION GAP 4 (5-13); BLOOD UREA NITROGEN 22 mg/dl (7-20); CALCIUM 7.7 mg/dl (8.4-10.2); CARBON DIOXIDE 22 mmol/L (21-31); CHLORIDE 111 mmol/L (97-110); CREATININE 1.26 mg/dl (0.61-1.24); GLUCOSE 96 mg/dl (70-220); MAGNESIUM 1.9 mg/dl (1.7-2.5); POTASSIUM 3.4 mmol/L (3.5-5.1); SODIUM 137 mmol/L (135-144)
[2019-02-14] MEDS: SERTRALINE 50 MG TAB GTB (09:48)
[2019-02-14] MEDS: LEVOTHYROXINE 100 MCG TAB GTB (09:48)
[2019-02-14] MEDS: MEMANTINE 5 MG TAB GTB (09:48)
[2019-02-14] MEDS: SENNA TAB GTB ×2 (09:48→22:11)
[2019-02-14] MEDS: ASCORBIC ACID 500 MG TAB GTB (09:48)
[2019-02-14] MEDS: MULTIVITAMINS THERAPEUTIC TAB GTB (09:48)
[2019-02-14] MEDS: POTASSIUM CHLORIDE 20 MEQ POWDER FOR ORAL SOLN GTB (09:49)
[2019-02-14] MEDS: POLYETHYLENE GLYCOL 17 GM PACKET GTB ×2 (09:49→22:11)
[2019-02-14] MEDS: FLUCONAZOLE 200 MG (PMX) 100 ML IVPB (10:09)
[2019-02-14 12:18] LABS: HEMATOCRIT 26.5 % (42.0-52.0); HEMOGLOBIN 8.6 g/dl (14.0-18.0)
[2019-02-14 18:45] LABS: HEMATOCRIT 25.5 % (42.0-52.0); HEMOGLOBIN 8.4 g/dl (14.0-18.0)
[2019-02-15] MEDS: METOCLOPRAMIDE 10 MG INJ IV ×3 (02:27→12:00)
[2019-02-15 06:04] LABS: ADD MAN DIFF? NO
[2019-02-15 06:17] LABS: BASOPHILS % 0.8 % (0.0-2.0); EOSINOPHILS # 0.1 10^3/ul (0.0-0.5); EOSINOPHILS % 2.9 % (0.0-7.0); HEMOGLOBIN 8.8 g/dl (14.0-18.0); LYMPHOCYTES # 1.3 10^3/ul (0.8-2.9); LYMPHOCYTES % 26.3 % (15.0-51.0); MEAN CORPUSCULAR HEMOGLOBIN 31.9 pg (29.0-33.0); MEAN CORPUSCULAR HGB CONC 32.6 g/dl (32.0-37.0); MEAN CORPUSCULAR VOLUME 97.8 fl (82.0-101.0); MEAN PLATELET VOLUME 10.2 fl (7.4-10.4); MONOCYTE # 0.6 10^3/ul (0.3-0.9); MONOCYTES % 12.9 % (0.0-11.0); NEUTROPHIL # 2.6 10^3/ul (1.6-7.5); NEUTROPHILS % 54.2 % (39.0-77.0); PLATELET COUNT 169 10^3/UL (140-415); RED BLOOD COUNT 2.76 10^6/ul (4.70-6.10); RED CELL DISTRIBUTION WIDTH 15.6 % (11.5-14.5)
[2019-02-15 06:17] LABS: WHITE BLOOD COUNT 4.8 10^3/ul (4.8-10.8)
[2019-02-15 06:26] LABS: ANION GAP 4 (5-13); BLOOD UREA NITROGEN 19 mg/dl (7-20); CALCIUM 8.1 mg/dl (8.4-10.2); CARBON DIOXIDE 23 mmol/L (21-31); CHLORIDE 111 mmol/L (97-110); GLUCOSE 97 mg/dl (70-220); MAGNESIUM 1.7 mg/dl (1.7-2.5); POTASSIUM 4.4 mmol/L (3.5-5.1); SODIUM 138 mmol/L (135-144)
[2019-02-15] MEDS: PANTOPRAZOLE IV 80 MG in SOD CHLORIDE 0.9% 100 ML IV ×2 (06:57→11:00)
[2019-02-15] MEDS: CEFEPIME 1GM/50 ML (PMX) 50 ML IVPB ×2 (06:58→13:42)
[2019-02-15] MEDS: LEVOTHYROXINE 100 MCG TAB GTB (07:01)
[2019-02-15] MEDS: SENNA TAB GTB (09:28)
[2019-02-15] MEDS: POLYETHYLENE GLYCOL 17 GM PACKET GTB (09:28)
[2019-02-15] MEDS: FLUCONAZOLE 200 MG (PMX) 100 ML IVPB (09:28)
[2019-02-15] MEDS: SERTRALINE 50 MG TAB GTB (09:29)
[2019-02-15] MEDS: FUROSEMIDE 20 MG INJ IV (09:29)
[2019-02-15] MEDS: MULTIVITAMINS THERAPEUTIC TAB GTB (09:30)
[2019-02-15] MEDS: ASCORBIC ACID 500 MG TAB GTB (09:30)
[2019-02-15] MEDS: MEMANTINE 5 MG TAB GTB (09:30)
== END 2019-02-15 16:40 | DRG 380 ==
LOC: ICU 02-12 01:56 → E/R 05:46 → TEL 02-10 16:29 → 6WM 02-13 22:16 → PP2 06:58
PROVIDERS: Pediatrics
PROC: 0DB58ZX Excision of Esophagus, Via Natural or Artificial Opening Endoscopic, Diagnostic (ICD-10-PCS; principal; 2019-02-08 12:15)
PROC: 0W3P8ZZ Control Bleeding in Gastrointestinal Tract, Via Natural or Artificial Opening Endoscopic (ICD-10-PCS; 2019-02-08 12:15)
PROC: 30233K1 Transfusion of Nonautologous Frozen Plasma into Peripheral Vein, Percutaneous Approach (ICD-10-PCS; 2019-02-08 12:15)
PROC: 30233N1 Transfusion of Nonautologous Red Blood Cells into Peripheral Vein, Percutaneous Approach (ICD-10-PCS; 2019-02-08 12:15)
PROC: 06HM33Z Insertion of Infusion Device into Right Femoral Vein, Percutaneous Approach (ICD-10-PCS; 2019-02-08 12:15)
DX: K22.11 Ulcer of esophagus with bleeding (principal); J18.9 Pneumonia, unspecified organism; R57.8 Other shock; I50.33 Acute on chronic diastolic (congestive) heart failure; B37.81 Candidal esophagitis; T83.511A Infection and inflammatory reaction due to indwelling urethral catheter, initial encounter; D62 Acute posthemorrhagic anemia; E87.1 Hypo-osmolality and hyponatremia; E46 Unspecified protein-calorie malnutrition; N17.9 Acute kidney failure, unspecified; K29.01 Acute gastritis with bleeding; K92.0 Hematemesis; I11.0 Hypertensive heart disease with heart failure; E86.0 Dehydration; G30.9 Alzheimer's disease, unspecified; F02.80 Dementia in other diseases classified elsewhere, unspecified severity, without behavioral disturbance, psychotic disturbance, mood disturbance, and anxiety; E03.9 Hypothyroidism, unspecified; F32.9 Major depressive disorder, single episode, unspecified; D64.9 Anemia, unspecified; Z68.26 Body mass index [BMI] 26.0-26.9, adult; R13.10 Dysphagia, unspecified; K20.8 Other esophagitis; K56.41 Fecal impaction; Z93.1 Gastrostomy status
CPT/HCPCS: 36415; 36430; 71045; 74176; 80048; 80053; 80061; 80202; 81001; 81003; 82043; 82270; 82550; 82553; 82962; 83605; 83735; 83880; 84100; 84155; 84300; 84443; 84484; 85014; 85018; 85025; 85610; 85730; 86850; 86900; 86901; 86920; 87040-91; 87081; 87086; 88104; 88305; 88312; 88313; 93005; 93306; 94664; 96374; 96375; 99285-25